=== PATIENT | female | born 1985 ===

== ENCOUNTER 2017-08-19 10:25 | Outpatient (CLI) | payer OTHER ==
[~2017-08-19] VITALS: Ht 162.6 cm; Wt 80.3 kg
== END 2017-08-19 10:45 | disposition home or self-care (01) ==
LOC: OFIC 805 10:25
DX: K21.9 Gastro-esophageal reflux disease without esophagitis (principal); R04.0 Epistaxis; R13.19 Other dysphagia

== ENCOUNTER 2017-09-17 11:13 | Outpatient (CLI) | payer OTHER ==
[~2017-09-17] VITALS: Ht 152.4 cm; Wt 80.3 kg
== END 2017-09-17 11:30 | disposition home or self-care (01) ==
LOC: OFIC 805 11:13
DX: R04.0 Epistaxis (principal); R13.19 Other dysphagia